=== PATIENT | male | born 1990 | race Caucasian/White ===

== ENCOUNTER → 2019-07-06 | Outpatient (REF) ==
[~2019-07-06] MED LIST: ATEN-1 PO; BUPR-124 PO; DULO30CA6 PO; PROP40TA45 PO; SERT-184 PO
--- NOTE | 2019-07-06 11:25 | RADIOLOGY IMAGING REPORT ---
FACILITY: [facility] [place] PATIENT NAME: Shahid Dimas : 1990 MR: [id number] V: [id number] EXAM DATE: ORDERING PHYSICIAN: TAMIKA RUIZ TECHNOLOGIST: Location: [facility] Patient: Shahid Dimas : 1990 Visit/Account:[id number] Date of Sevice: 07/06/2019 Exam type: CHEST PA LAT History: Z 02.89-ICD-10 Comparison: None. Findings: The lungs are free of acute effusions, infiltrates or edema. No cavitary lesions are identified. Th e cardiac silhouette is normal in size. Visualized bones are unremarkable for age. IMPRESSION: 1. No acute cardiopulmonary process is seen. Specifically no chest radiographic evidence of active tuberculosis. Report Dictated By: Jenn Browning MD at 07/06/2019 11:14 AM Report E-Signed By: Jenn Browning MD at 07/06/2019 11:16 AM WSN:[email or web address]
== END ==
LOC: RAD 10:15
PROVIDERS: ATTEND Family Medicine
DX: Z02.89 Encounter for other administrative examinations (principal)
CPT/HCPCS: 71046